=== PATIENT | female | born 1985 | race Caucasian/White ===

== ENCOUNTER 2024-11-28 14:27 | Outpatient (REF) | payer OTHER, SELFPAY ==
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
--- OUTSIDE RECORDS SUMMARY | 2024-11-28 15:48 | XMS_ITS | Encounter Summary ---
Author Organization [facility] Address [address] [place] [address] [place] [phone] Phone Care Team Providers Care Center Mgr Name Role Phone Don Monique Devon BETH Primary Care Provider [phone] Reason for Referral * MRI/CAT Scan - Closed Specialty Diagnoses / Procedures Referred By Ulysses t Referred To Contact Radiology Diagnoses Adhesive right middle ear disease Procedures CT Temporal Bones (IAC/Posterior Fossa) CHG CT SCAN,ORBIT/SELLA/POST FOSSA/EAR,W/O Yuriy Emerson MD [address], [address] [place] [address] Phone: tel: fax: [email or web address] Referral ID Status Reason Start Date Expiration Date Visits Re quested Visits Authorized [id number] Closed 04/12/2024 05/27/2024 1 1 Encounter Details Date Type Department Care Team (Late st Contact Info) Description 04/15/2024 Transcribe Orders Virtual Department [address] [place] [address] Yuriy Emerson MD [address], [address] [place] [address] [email or web address] Adhesive right middle ear disease (Primary Dx) Social History Tobacco Use Types Packs/Day Years Used Date Smoking Tobacco: Never Smokeless Tobacco: Never Alcohol Use Standard Drinks/Week Comments Yes 3 (1 standard drink = 0.6 oz pur e alcohol) Education Answer Date Recorded Are you interested in more education? Not on jessica e 07/22/2022 Are you concerned about learning? Not on file 07/22/2022 No 07/22/2022 No 07/22/2022 Digital Access Answer Date Recorded No 08/19/2022 No 08/19/2022 Reliable internet access at home? Not on file 08/19/2022 Device with a working camera? Not on file Comments No Sex and Gender Information Value Date Recorded Sex Assigned at Not on file Legal Sex Female 9:09 PM EDT Gender Identity Not on file Sexual Orientation Not on file Occupation Industry Job Start Date Job End Date [employer] Not on file Not on file Not on file documented as of this encounter Plan of Treatment Not on file documented as of this encounter Results * CT HEAD (INTERNAL AUDITORY CANALS/POSTERIOR FOSSA) WITHOUT CONTRAST (04/23/2024 6:02 PM EST) Anatomical Region Laterality Modality Head Computed Tomogra phy 04/25/2024 2:41 PM EST Impressions 04/25/2024 2:49 PM EST 1. Right tympanostomy tube in place and mild thickening of the right tympanic membrane. 2. The right middle ear cavity and mastoid air cells are clear. There is absence of the long and lenticular processes of the right incus, likely due to erosion or resorption. 3. Unremarkable appearance of the left temporal bone. Narrative 04/25/2024 2:[address] TEMPORAL BONES (IAC/POSTERIOR FOSSA) WITHOUT CONTRAST Referring clinician's provided indication for this examination in Epic: Outside Radiology Order; Adhesive right middle ear disease TECHNIQUE: Multidetector-row CT of the temporal bones was performed without intravenous contrast using tailored dose modulation techniques. Images were reconstructed in the axial, coronal, and sagittal planes. COMPARISON: FINDINGS: Right: External Ear: Right tympanostomy tube in place. Mild thickening of the tympanic membrane. The external auditory canal is clear. Middle Ear, Mastoid: Clear middle ear cavity and mastoid air cells. There is absence of the long and lenticular processes of the incus. Patent oval window. Patent round window and clear round window niche. Sharp scutum. The facial nerve canal follows a normal course and appears covered by bone. Inner Ear: Homogeneous otic capsule attenuation without evidence for otosclerosis. Semicircular canals covered by bone. No evidence for an inner ear anomaly. The cochlea appears fully formed. The vestibular aqueduct is not enlarged. Intact bony covering of the carotid canal and jugular foramen. Left: External Ear: Clear external auditory canal. Middle Ear, Mastoid: Clear middle ear cavity and mastoid air cells. Ossicles intact and appropriately positioned. Patent oval window. Patent round window and clear round window niche. Sharp scutum. The facial nerve canal follows a normal course and appears covered by bone. Inner Ear: Homogeneous otic capsule attenuation without evidence for otosclerosis. Semicircular canals covered by bone. No evidence for an inner ear anomaly. The cochlea appears fully formed. The vestibular aqueduct is not enlarged. Intact bony covering of the carotid canal and jugular foramen. Temporomandibular Joints: No bony degenerative changes. Skull Base Foramina: Patent symmetric foramina ovale and spinosum. No destructive bone lesions. Imaged Paranasal Sinuses: Clear imaged portions of the paranasal sinuses and nasal cavity. Procedure Note Gregor Salazar MD - 04/25/2024 CT TEMPORAL BONES (IAC/POSTERIOR FOSSA) WITHOUT CONTRAST Referring clinician's provided indication for this examination in Epic:Outside Radiology Order; Adhesive right middle ear disease TECHNIQUE: Multidetector-row CT of the temporal bones was performedwithout intravenous contrast using tailored dose modulation techniques.Images were reconstructed in the axial, coronal, and sagittal planes. COMPARISON: FINDINGS: Right: External Ear: Right tympanostomy tube in place. Mild thickening of thetympanic membrane. The external auditory canal is clear. Middle Ear, Mastoid: Clear middle ear cavity and mastoid air cells. Thereis absence of the long and lenticular processes of the incus. Patent ovalwindow. Patent round window and clear round window niche. Sharp scutum.The facial nerve canal follows a normal course and appears covered bybone. Inner Ear: Homogeneous otic capsule attenuation without evidence forotosclerosis. Semicircular canals covered by bone. No evidence for aninner ear anomaly. The cochlea appears fully formed. The vestibularaqueduct is not enlarged. Intact bony covering of the carotid canal andjugular foramen. Left: External Ear: Clear external auditory canal. Middle Ear, Mastoid: Clear middle ear cavity and mastoid air cells.Ossicles intact and appropriately positioned. Patent oval window. Patentround window and clear round window niche. Sharp scutum. The facialnerve canal follows a normal course and appears covered by bone. Inner Ear: Homogeneous otic capsule attenuation without evidence forotosclerosis. Semicircular canals covered by bone. No evidence for aninner ear anomaly. The cochlea appears fully formed. The vestibularaqueduct is not enlarged. Intact bony covering of the carotid canal andjugular foramen. Temporomandibular Joints: No bony degenerative changes. Skull Base Foramina: Patent symmetric foramina ovale and spinosum. Nodestructive bone lesions. Imaged Paranasal Sinuses: Clear imaged portions of the paranasal sinusesand nasal cavity. IMPRESSION: 1. Right tympanostomy tube in place and mild thickening of the righttympanic membrane. 2. The right middle ear cavity and mastoid air cells are clear. There isabsence of the long and lenticular processes of the right incus, likelydue to erosion or resorption. 3. Unremarkable appearance of the left temporal bone. Yuriy Emerson MD IMG CT HEAD/NECK Final Resul t documented in this encounter Visit Diagnoses Diagnosis Adhesive right middle ear disease- Primary Adhesive right middle ear disease documented in this encounter Care Teams Center Mgr Relationship Specialty Start Date End Date Monique Ochoa DO [address] [place] [id number] PCP - General 03/30/17 documented as of this encounter Additional Source Comments The information contained in this document represents components of the legal health record. It is not the complete legal health record.[facility]
--- OUTSIDE RECORDS SUMMARY | 2024-11-28 15:48 | XMS_ITS | Encounter Summary ---
Author Organization [facility] Address [address] [place] [address] Phone Care Team Providers Care Foreign Food Specialty Cook Name Role Phone Monique Ochoa DO Primary Care Provider [phone] Encounter Details Date Type Department Care Team (Late st Contact Info) Description 01/21/2022 Procedure Pass OR Admitting Dept - Virtual Department [address] [place] [address] Social History Tobacco Use Types Packs/Day Years Used Date Smoking Tobacco: Never Smokeless Tobacco: Never Alcohol Use Standard Drinks/Week Comments Yes 3 (1 standard drink = 0.6 oz pur e alcohol) Comments No Sex and Gender Information Value [...] on file documented as of this encounter Visit Diagnoses Not on filedocumented in this encounter Care Teams Foreign Food Specialty Cook Relationship Specialty Start Date End Date Monique Ochoa DO [address] [place] [id number] PCP - General 03/30/17 documented as of this encounter Additional Source Comments The information contained in this document represents components of the legal health record. It is not the complete legal health record.[facility]
--- OUTSIDE RECORDS SUMMARY | 2024-11-28 15:48 | XMS_ITS | Encounter Summary ---
Author Organization [facility] Address [address] [place] [address] Phone Care Team Providers Care Core Machine Tender Name Role Phone Monique Ochoa DO Primary Care Provider Encounter Details Date Type Department Care Team (Late st Contact Info) Description 04/15/2024 Procedure Pass [facility], Ct Scan - [address] [address] Social History Tobacco Use Types Packs/Day Years [...] on filedocumented in this encounter Care Teams Core Machine Tender Relationship Specialty Start Date End Date Monique Ochoa DO [address] [place] [address] PCP - General 03/30/17 documented as of this encounter Additional Source Comments The information contained in this document represents components of the legal health record. It is not the complete legal health record.[facility]
--- OUTSIDE RECORDS SUMMARY | 2024-11-28 15:48 | XMS_ITS | Clinical Summary ---
Author Organization [facility] Address [address] [place] [address] Phone Care Team Providers Care Brainer Name Role Phone JaradMonique cruz Primary Care Provider [phone] Allergies Active Allergy Reactions Criticality Noted Date Comments Hazelnut Throat Tightness Medium 01/21/2022 Medications levothyroxine (TIROSINT) 25 mcg Cap 12.5 mcg daily. Acti ve metFORMIN (GLUCOPHAGE) 500 MG tablet Take 500 mg by mouth 2 (two) times a day (once in the morning and once in the afternoon). Active traZODone (DESYREL) 50 MG tablet 2 Active ibuprofen (ADVIL,MOTRIN) 600 MG tablet Take 1 tablet (600 mg total) by mouth every 6 (six) hours as needed for pain (specific location in comments). 40 tablet 2 Active oxyCODONE 5 MG immediate release tablet Take 1 tablet (5 mg total) by mouth every 4 (four) hours as needed for pain (specific location in comments) (not relieved by ibuprofen and tylenol). Partial fill ok 12 tablet 2 Active Additional Information Patient not taking.Reported on 02/10/2022 Hospital, Clinic, or Other Facility Administered Medication Ordered Dose Route Frequency Start Date End Date Status etonogestreL (NEXPLANON) subdermal implant 68 mg 68 mg IDrm Every 3 years 08/26/2021 Active Active Problems Problem Noted Date Diagnosed Date Type 2 diabetes mellitus wit hout complication, without long-term current use of insulin 12/17/2021 Hypothyroid 08/02/2017 Resolved Problems Problem Noted Date Diagnosed Date Resolved Date Admission for sterilization 01/21/2022 02/11/2022 Encounter for preoperative s creening laboratory testing for COVID-19 virus Immunizations Immunization Administration Dates Next Due COVID-19 (Pre-01/16) Pfizer Vaccine, mRNA, PF INFLUENZA, SPLIT VIRUS, TRIVALENT W/ PRESERVATIV E IM 12/23/2011 Pneumococcal conjugate PCV13 10/24/2018 Pneumococcal polysaccharide PPSV23 08/05/2020 Td (adult),2 Lf Tetanus Toxoid, PF, Adsorbed 05/2019 Tdap 05/21/2012 Family History Medical History Relation Comments No Known Problems Brother 1 No Known Problems Brother 2 No Known Problems Daughter 1 No Known Problems Daughter 2 Other Father UNKNOWN Diabetes Mother Hypertension Mother No Known Problems Sister 1 No Known Problems Sister 2 No Known Problems Son Relation Status Comments Brother 1 Alive Brother 2 Alive Daughter 1 Alive Daughter 2 Alive Father Alive Mother Alive Sister 1 Alive Sister 2 Alive Son Alive Social History Tobacco Use Types Packs/Day Years [...] file Not on file Not on file Last Filed Vital Signs Vital Sign Reading Time Taken Comments Blood Pressure 146/88 01/21/2022 3:12 PM EDT Pulse 66 01/21/2022 2:45 PM EDT Temperature 36.2 C (97.2 F) 01/21/2022 3:12 PM EDT Respiratory Rate 11 01/21/2022 2:45 PM EDT Oxygen Saturation 100% 01/21/2022 3:12 PM EDT Inhaled Oxygen Concentration - - Weight 76.4 kg (168 lb 6.4 oz) 02/10/2022 4:26 P M EST Height 158.8 cm (5' 2.5 ) 01/18/2022 10:45 AM ED T Body Mass Index 30.31 01/18/2022 10:45 AM EDT Plan of Treatment Health Maintenance Due Date Last Done Comments CREATININE LEVEL 1987 HEMOGLOBIN A1C 1987 TSH LEVEL 1987 DEPRESSION SCREENING 1999 HEPATITIS C SCREENING 06/10/2005 HIV ONE-TIME SCREENING (18-6 5 YEARS) 06/10/2005 LIPID PANEL 06/10/2005 DIABETIC EYE EXAM 12/17/2021 URINE MICROALBUMIN/CREATININ E RATIO 12/17/2021 BLOOD PRESSURE 06/16/2022 12/17/2021 INFLUENZA VACCINE (#1) 2024 12/23/2011 COVID-19 VACCINE (3 - 2024-2 6 season) 2024 07/11/2020, 06/20/2020 PAP SMEAR 2027 06/10/2024, 11/28/2019 Adult Td,Tdap Booster 11/27/2029 11/28/2019 , 05/21/2012 PNEUMOCOCCAL VACCINES (0-49 years) (3 of 3 - PCV20 or PCV21) 06/10/2037 08/05/2020, 10/24/2018 SMOKING STATUS SCREENING (On ce After 26 Yrs) Completed 01/20/2022 HEPATITIS A VACCINES Aged Out No long er eligible based on patient's age to complete this topic HIB VACCINES Aged Out No longer eligi ble based on patient's age to complete this topic MENINGOCOCCAL VACCINES (ACWY) Aged Out No longer eligible based on patient's age to complete this topic MENINGOCOCCAL VACCINES (B) Aged Out N o longer eligible based on patient's age to complete this topic Medical Devices Implanted Type Area Dietary Director Device Identifier Shelf Expiration Date Model / Serial / Lot Control Device Control Device Left: Arm Procedures Procedure Name Priority Date/Time Associated Diagnosis Comments PAP TEST Routine 06/10/2024 12:00 AM EDT from Last 3 Months or Most Recently Relevant to Health Maintenance Results * Pap Test (06/10/2024 12:00 AM EDT) 06/10/2024 2024 9:2 9 AM EDT Narrative SEE NARRATIVE - 06/18/2024 2:45 PM EDT [address] [address] Hog Ribber: Jeff Mendez MD TRUSS PULLER HELPER Cytology Report FINAL DIAGNOSIS A. PAP SMEAR (THIN PREP) CE: SPECIMEN ADEQUACY: Satisfactory for evaluation; transformation zone present. INTERPRETATION: NEGATIVE FOR INTRAEPITHELIAL LESION OR MALIGNANCY. This specimen was analyzed by the automated ThinPrep Imaging System ([employer] and the selected khan were reviewed by a supervisor wool shearing. Electronically Signed Out By: MARAL Lockhart(ASCP) The Pap test is a screening test primarily for squamous cancers and precursors and has associated false-negative and false-positive results. New technologies such as liquid-based preparations may decrease but will not eliminate all false-negative results. Regular sampling and follow-up of unexplained clinical signs and symptoms are recommended to minimize false negative results. CLINICAL HISTORY Date of Last Menstrual Period: 06-05-2024 Other Clinical Conditions: Screening Pap SPECIMEN SOURCE A: PAP SMEAR (THIN PREP) CE Patient Name: YULISA SNYDER : 1985 (Age: 39) Sex: F Institution: [facility] Location: [facility] Date of Collection: 06/10/2024 Date of Reported: 06/18/2024 14:45 Results to: Chantelle Iniguez Authorjose luis Provider Result Type Result Stat us Chantelle DANGELO CYTOLOGY ORDER CANELO Final Result SEE NARRATIVE from Last 3 Months or Most Recently Relevant to Health Maintenance [facility] reportbrain reportbrain [employer] Care Teams Brainer Relationship Specialty Start Date End Date Monique Ochoa DO [address] [place] [id number] PCP - General 03/30/17 Additional Source Comments The information contained in this document represents components of the legal health record. It is not the complete legal health record.[facility]
== END 2024-11-28 14:28 | disposition home or self-care (01) ==
LOC: HO.HMGCX 14:27
PROVIDERS: PCP Physician Assistant; Visit Provider Chiropractor
DX: M54.2 Cervicalgia (principal); M54.50 Low back pain, unspecified
CPT/HCPCS: 72040; 72100

== ENCOUNTER → 2024-11-28 14:45 | Outpatient (BNV) | payer OTHER, SELFPAY | PROVIDERS: PCP Physician Assistant; Visit Provider Radiology Diagnostic Radiology | DX: M54.2 Cervicalgia (principal); M54.50 Low back pain, unspecified | CPT/HCPCS: 72040; 72100 ==